=== PATIENT | male | born 1975 | race Caucasian/White ===

== ENCOUNTER 2021-08-21 07:30 | Emergency (ER) | payer MEDICAID, OTHER ==
[2021-08-21] MEDS ORDERED: Sodium Chloride 0.9% 10 ML Syringe FLUSH PRN (07:39)
[2021-08-21] MEDS ORDERED: Sodium Chloride 0.9% 2.5 ML Syringe FLUSH PRN (07:39)
[2021-08-21] MEDS ORDERED: Thiamine 100 MG Tab PO ONE (07:40)
[2021-08-21] MEDS ORDERED: Folic Acid 1 MG Tab PO ONE (07:40)
[2021-08-21] MEDS ORDERED: Sodium Chloride 0.9% 1,000 ML IV ONE ×4 (07:51→09:25)
[2021-08-21 08:26] LABS: BLOOD UREA NITROGEN,BUN 18 mg/dL (7.0-18.0); CARBON DIOXIDE,CO2 17.4 mmol/L (21.0-32.0); CHLORIDE,CL 75 mmol/L (98-107); GLUCOSE RANDOM 69 mg/dL (74-106); SODIUM,NA 127 mmol/L (136-148)
[2021-08-21 08:39] LABS: POTASSIUM,K 3.8 mmol/L (3.5-5.1)
[2021-08-21] MEDS ORDERED: LORazepam 2 MG/ML SDV IVPUSH ONE (08:57)
[2021-08-21] MEDS ORDERED: 50% Dextrose in Water 50 ML Syringe IVPUSH ONE (08:57)
[2021-08-21] MEDS ORDERED: Cefepime 2 GM in Sodium Chloride 0.9% 50 ML IV ONE (09:14)
[2021-08-21] MEDS ORDERED: Pantoprazole 40 MG in Sodium Chloride 0.9% 10 ML IVPUSH ONE (10:59)
[2021-08-21 11:26] LABS: CARBON DIOXIDE,CO2 19.2 mmol/L (21.0-32.0); POTASSIUM,K 3.8 mmol/L (3.5-5.1)
== END 2021-08-21 12:02 ==
LOC: MW.ED 07:30
DX: K92.2 Gastrointestinal hemorrhage, unspecified (principal); N17.9 Acute kidney failure, unspecified; K74.60 Unspecified cirrhosis of liver
CPT/HCPCS: 36415; 36430; 70450; 71045; 76705; 80048; 80053; 80307; 82140; 82947; 83605; 83735; 84484; 85025; 85610; 85730; 86850; 86900; 86901; 86920; 87040; 93005; 96365; 96366; 96368; 96375; 99285; A9270; C9113; J0692; J2060; J3370; J7030; J7050; P9016; 93010; J3490

== ENCOUNTER 2021-09-16 22:11 | Emergency (ER) | payer MEDICAID ==
[2021-09-16 23:28] LABS: BLOOD UREA NITROGEN,BUN 12 mg/dL (7.0-18.0); CARBON DIOXIDE,CO2 26.3 mmol/L (21.0-32.0); CHLORIDE,CL 104 mmol/L (98-107); GLUCOSE RANDOM 109 mg/dL (74-106); LIPASE 351 U/L (73-393); POTASSIUM,K 3.7 mmol/L (3.5-5.1); SODIUM,NA 136 mmol/L (136-148)
[2021-09-17] MEDS ORDERED: Octyl 2-Cyanoacrylate 1 APPLIC TUBE TOP STA (02:49)
== END 2021-09-17 03:54 | disposition home or self-care (01) ==
LOC: MW.ED 22:11
DX: K70.31 Alcoholic cirrhosis of liver with ascites (principal); R06.00 Dyspnea, unspecified
CPT/HCPCS: 36415; 49083; 80053; 80307; 82150; 82447; 83690; 83986; 84157; 84315; 85025; 85610; 85730; 87015; 87070; 87075; 87205; 89050; 99284; A9270; 10060; 99283

== ENCOUNTER 2022-03-18 01:14 | Emergency (ER) | payer MEDICAID ==
[2022-03-18] MEDS ORDERED: Ondansetron 4 MG/2 ML SDV IVPUSH ONE (01:39)
[2022-03-18] MEDS ORDERED: Sodium Chloride 0.9% 1,000 ML IV ONE (01:39)
[2022-03-18] MEDS ORDERED: Sodium Chloride 0.9% 2.5 ML Syringe FLUSH PRN (01:39)
[2022-03-18] MEDS ORDERED: Sodium Chloride 0.9% 10 ML Syringe FLUSH PRN (01:39)
[2022-03-18 02:44] LABS: CARBON DIOXIDE,CO2 28.1 mmol/L (21.0-32.0); POTASSIUM,K 2.9 mmol/L (3.5-5.1)
[2022-03-18] MEDS ORDERED: Potassium Chloride 10% 20 MEQ/15 ML Soln 30 ML UD Cup PO ONE (02:47)
== END 2022-03-18 03:17 | disposition home or self-care (01) ==
LOC: MW.ED 01:14
DX: F10.129 Alcohol abuse with intoxication, unspecified (principal); E87.6 Hypokalemia; E86.0 Dehydration; R11.2 Nausea with vomiting, unspecified
CPT/HCPCS: 36415; 80053; 80307; 81001; 83690; 85025; 96361; 96374; 99284; A9270; J2405; J3490; J7030